=== PATIENT | male | born 1970 | race Caucasian/White ===

== ENCOUNTER 2018-08-12 15:05 | Inpatient (IN) | payer MEDICARE ==
[~2018-08-12] VITALS: Ht 194.3 cm; Wt 95.9 kg
[2018-08-12] MEDS ORDERED: BENZTROPINE ME0.5 MG PO (15:06)
[2018-08-12 15:16] VITALS: BP 154/99
[2018-08-12 16:00] VITALS: BP 149/91
[2018-08-12] MEDS ORDERED: Albuterol/Ipratropium 3ml neb HHN PRN (16:15)
[2018-08-12] MEDS ORDERED: Mylanta II UD 30ml ORAL PRN (16:15)
[2018-08-12] MEDS ORDERED: Nitroglycerin Subl 0.4mg tab SL PRN (16:15)
[2018-08-12] MEDS ORDERED: Tetanus/Diptheria/Pertussis Vaccine 0.5ml Syr IM ONE (16:15)
[2018-08-12] MEDS ORDERED: Ketorolac 30mg Inj IV PRN (16:15)
[2018-08-12] MEDS ORDERED: Miralax 17gm pkt ORAL PRN (16:15)
[2018-08-12 16:16] LABS: BASOPHILS % (AUTO) 1.1 % (0.0-2.0); EOSINOPHILS % (AUTO) 1.3 % (0.0-3.0); HEMATOCRIT 46.4 % (42.0-52.0); HEMOGLOBIN 15.9 G/DL (14.2-18.0); MEAN CORPUSCULAR VOLUME 83 FL (80-99); NEUTROPHILS % (AUTO) 63.5 % (45.0-75.0); PLATELET COUNT 197 K/UL (150-450); RED BLOOD COUNT 5.59 M/UL (4.70-6.10); RED CELL DISTRIBUTION WIDTH 12.5 % (11.6-14.8)
[2018-08-12 16:18] LABS: ANION GAP 12 mmol/L (5-15); BLOOD UREA NITROGEN 19 mg/dL (7-18); CALCIUM 9.2 MG/DL (8.5-10.1); CARBON DIOXIDE 25 MMOL/L (21-32); CHLORIDE 99 MMOL/L (98-107); CREATININE 1.3 MG/DL (0.55-1.30); POTASSIUM 4.3 MMOL/L (3.5-5.1); SODIUM 136 MMOL/L (136-145)
[2018-08-12 16:22] LABS: ALANINE AMINOTRANSFERASE 29 U/L (12-78); ALBUMIN 4.2 G/DL (3.4-5.0); ALBUMIN/GLOBULIN RATIO 1.1 (1.0-2.7); ALKALINE PHOSPHATASE 114 U/L (46-116); ASPARTATE AMINO TRANSFERASE 20 U/L (15-37); BILIRUBIN,TOTAL 0.4 MG/DL (0.2-1.0)
[2018-08-12 17:00] VITALS: BP 135/78
--- NOTE | 2018-08-12 17:04 | Diagnostic Imaging Report ---
EXAM: XR Right Foot Complete, 3 or More Views CLINICAL HISTORY: PAIN TECHNIQUE: Frontal, lateral and oblique views of the right foot. COMPARISON: No relevant prior studies available. FINDINGS: Bones/joints: Second digit amputation at the proximal aspect of the proximal phalanx. Slight subluxation of the distal first phalanx with respect to the proximal phalanx. No fracture. Limited evaluation distal aspect of the proximal third and fourth phalanx, query lucency that is likely artifact/projectional, correlate with point tenderness for possible fracture. Small marginal erosion distal first metatarsal. Soft tissues: No radiopaque foreign body. IMPRESSION: 1. Soft tissue swelling first digit. 2. Second digit amputation at the proximal aspect of the proximal phalanx. 3. Slight subluxation of the distal first phalanx with respect to the proximal phalanx. No fracture. 4. Limited evaluation distal aspect of the proximal third and fourth phalanx, query lucency that is likely artifact/projectional, correlate with point tenderness for possible fracture.
[2018-08-12 17:25] LABS: APPEARANCE,URINE CLEAR; BILIRUBIN, URINE NEGATIVE (NEGATIVE); COLOR,URINE PALE YELLOW; GLUCOSE, URINE (UA) 4+ (NEGATIVE); KETONES,URINE NEGATIVE (NEGATIVE); LEUKOCYTE ESTERASE ,URINE NEGATIVE (NEGATIVE); NITRITE,URINE NEGATIVE (NEGATIVE); PH,URINE 7 (4.5-8.0); PROTEIN,URINE 2+ (NEGATIVE); UROBILINOGEN,URINE NORMAL MG/DL (0.0-1.0)
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
[2018-08-12] MEDS: NovoLOG Insulin Flexpen SUBQ SCH ×2 (18:40→21:00)
[2018-08-12 20:00] VITALS: BP 116/71
[2018-08-12] MEDS ORDERED: NovoLOG Insulin Flexpen SUBQ SCH (21:00)
[2018-08-12] MEDS: Heparin 5000 units/ml inj SUBQ SCH (21:00)
[2018-08-12] MEDS: Morphine Sulfate 2mg/ml Inj IVP PRN (21:37)
[2018-08-12] MEDS: Levemir Flexpen SUBQ SCH (21:44)
[2018-08-13] MEDS: Morphine Sulfate 2mg/ml Inj IVP PRN ×6 (02:15→22:40)
[2018-08-13 04:00] VITALS: BP 125/80
[2018-08-13] MEDS: NovoLOG Insulin Flexpen SUBQ SCH ×7 (06:15→21:51)
[2018-08-13 06:29] LABS: BASOPHILS % (AUTO) 0.9 % (0.0-2.0); EOSINOPHILS % (AUTO) 2.7 % (0.0-3.0); HEMATOCRIT 44.1 % (42.0-52.0); HEMOGLOBIN 14.6 G/DL (14.2-18.0); LYMPHOCYTES % (AUTO) 28.1 % (20.0-45.0); MEAN CORPUSCULAR VOLUME 83 FL (80-99); MONOCYTES % (AUTO) 8.5 % (1.0-10.0); NEUTROPHILS % (AUTO) 59.8 % (45.0-75.0); PLATELET COUNT 179 K/UL (150-450); RED BLOOD COUNT 5.31 M/UL (4.70-6.10); RED CELL DISTRIBUTION WIDTH 13.1 % (11.6-14.8); WHITE BLOOD COUNT 7.5 K/UL (4.8-10.8)
[2018-08-13 06:55] LABS: ALANINE AMINOTRANSFERASE 24 U/L (12-78); ALBUMIN 3.6 G/DL (3.4-5.0); ALBUMIN/GLOBULIN RATIO 1.1 (1.0-2.7); ALKALINE PHOSPHATASE 99 U/L (46-116); ANION GAP 7 mmol/L (5-15); ASPARTATE AMINO TRANSFERASE 19 U/L (15-37); BILIRUBIN,TOTAL 0.5 MG/DL (0.2-1.0); BLOOD UREA NITROGEN 17 mg/dL (7-18); CALCIUM 8.8 MG/DL (8.5-10.1); CARBON DIOXIDE 26 MMOL/L (21-32); CHLORIDE 106 MMOL/L (98-107); CHOLESTEROL 185 MG/DL (< 200); CREATININE 0.9 MG/DL (0.55-1.30); HDL CHOLESTEROL 54 MG/DL (40-60); POTASSIUM 4.2 MMOL/L (3.5-5.1); SODIUM 139 MMOL/L (136-145); TRIGLYCERIDES 67 MG/DL (30-150)
[2018-08-13 08:00] VITALS: BP 128/78
[2018-08-13] MEDS: Heparin 5000 units/ml inj SUBQ SCH ×2 (08:20→21:49)
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
--- NOTE | 2018-08-13 10:30 | History and Physical Report ---
DATE OF ADMISSION: 08/12/2018 TIME SEEN: At 7 a.m. CONSULTANTS: 1. Jami Willett M.D. 2. Albertina Rice M.D. 3. Ramez Crawford M.D. 4. Farhat Noel D.P.M. 5. Elle Moore M.D. CHIEF COMPLAINT: Diabetes, hyperglycemia, encephalopathy, foot pain and wound, confusion, . BRIEF HISTORY: This is a 48-year-old male from [facility], who presented with diabetes, hyperglycemia greater than 500. He was confused and slightly agitated, sent to [facility], diagnosed with the above, and admitted to medical floor for further treatment. Currently, calmer in bed, complains of slight foot pain, no complaint otherwise. REVIEW OF SYSTEMS: No chest pain. No shortness of breath. No nausea, vomiting, or diarrhea. PAST MEDICAL HISTORY: Encephalopathy, diabetes, hyperglycemia, COPD, behavioral disorder. PAST SURGICAL HISTORY: Left foot. MEDICATIONS: Include insulin, heparin, IV fluid, albuterol, morphine, Zofran, temazepam, , nitroglycerin, clonidine. ALLERGIES: Penicillin and ibuprofen. SOCIAL HISTORY: Positive smoke. Positive alcohol. No intravenous drug abuse. FAMILY HISTORY: Noncontributory. PHYSICAL EXAMINATION: GENERAL: Calm in bed, oriented x2, in no acute distress. VITAL SIGNS: Temperature is 97 degrees, pulse 73, respiratory rate 17, blood pressure 125/80. CARDIOVASCULAR: No murmur. LUNGS: Distant and clear. ABDOMEN: Bowel sounds positive. Nontender, nondistended. EXTREMITIES: No cyanosis or edema. Left midfoot surgery noted as well as right toe slight abrasions. NEUROLOGIC: The patient moves all extremities, slightly weak. LABORATORY AND DIAGNOSTIC DATA: Labs at this time show CBC is normal. BMP shows glucose initially was 385 and now it is 168, otherwise is normal. Urinalysis is 4+ glucose, 2+ protein, otherwise normal. Acetone negative. ASSESSMENT: 1. Diabetes. 2. Hyperglycemia. 3. Encephalopathy. 4. COPD. 5. Foot pain and wound. PLAN: 1. Continue previous medications. 2. OT, PT, dietary evaluation. 3. CBC and BMP in the morning. 4. Wound care. 5. Antibiotics p.r.n. 6. Blood sugar control. 7. Dietary followup. 8. Resume home medications. 9. We will continue to follow this patient. Adriano Lei D.O. DR: Lindsay JOB#: [id number] CC:
--- NOTE | 2018-08-13 11:08 | Consultation ---
History of Present Illness General Date patient seen: Aug 13, 2018 Chief Complaint: Referring physician: Reason for Consultation: Present Illness Allergies: Coded Allergies: IBUPROFEN (Verified Allergy, Severe, Anaphylaxis, 08/12/18) PENICILLINS (Verified Allergy, Severe, Anaphylaxis, 08/12/18) Medication History Scheduled Benztropine Mesylate* (Cogentin*), 1 MG PO BID, (Reported) Patient History Healthcare decision maker N Resuscitation status Full Code Advanced Directive on File No Physical Exam Last 24 Hour Vital Signs Date Time Temp Pulse Resp B/P (MAP) Pulse Ox O2 Delivery O2 Flow Rate FiO2 08/13/18 09:00 Room Air 08/13/18 08:00 97.4 82 20 128/78 (95) 95 97.4 08/13/18 04:00 97.4 73 17 125/80 (95) 98 97.4 08/12/18 21:00 Room Air 08/12/18 20:58 Room Air 08/12/18 20:00 97.7 91 18 116/71 (86) 93 97.7 08/12/18 17:00 99 22 135/78 95 Room Air 08/12/18 16:00 95 33 149/91 93 Room Air 08/12/18 15:16 98.8 111 21 154/99 95 Room Air 98.8 08/12/18 14:58 98.2 87 16 164/82 100 Room Air 98.2 Intake and Output 08/12/18 08/13/18 19:00 07:00 Intake Total 1000 ml Balance 1000 ml Intake Oral 600 ml IV Total 400 ml # Voids 2 Laboratory Tests Test 08/12/18 15:40 08/13/18 05:30 White Blood Count 7.0 K/UL (4.8-10.8) 7.5 K/UL (4.8-10.8) Red Blood Count 5.59 M/UL (4.70-6.10) 5.31 M/UL (4.70-6.10) Hemoglobin 15.9 G/DL (14.2-18.0) 14.6 G/DL (14.2-18.0) Hematocrit 46.4 % (42.0-52.0) 44.1 % (42.0-52.0) Mean Corpuscular Volume 83 FL (80-99) 83 FL (80-99) Mean Corpuscular Hemoglobin 28.4 PG (27.0-31.0) 27.6 PG (27.0-31.0) Mean Corpuscular Hemoglobin Concent 34.2 G/DL (32.0-36.0) 33.2 G/DL (32.0-36.0) Red Cell Distribution Width 12.5 % (11.6-14.8) 13.1 % (11.6-14.8) Platelet Count 197 K/UL (150-450) 179 K/UL (150-450) Mean Platelet Volume 7.3 FL (6.5-10.1) 8.1 FL (6.5-10.1) Neutrophils (%) (Auto) 63.5 % (45.0-75.0) 59.8 % (45.0-75.0) Lymphocytes (%) (Auto) 27.0 % (20.0-45.0) 28.1 % (20.0-45.0) Monocytes (%) (Auto) 7.0 % (1.0-10.0) 8.5 % (1.0-10.0) Eosinophils (%) (Auto) 1.3 % (0.0-3.0) 2.7 % (0.0-3.0) Basophils (%) (Auto) 1.1 % (0.0-2.0) 0.9 % (0.0-2.0) Urine Color Pale yellow Urine Appearance Clear Urine pH 7 (4.5-8.0) Urine Specific [place] 1.005 (1.005-1.035) Urine Protein 2+ (NEGATIVE) H Urine Glucose (UA) 4+ (NEGATIVE) H Urine Ketones Negative (NEGATIVE) Urine Blood Negative (NEGATIVE) Urine Nitrite Negative (NEGATIVE) Urine Bilirubin Negative (NEGATIVE) Urine Urobilinogen Normal MG/DL (0.0-1.0) Urine Leukocyte Esterase Negative (NEGATIVE) Urine RBC 0-2 /HPF (0 - 0) H Urine WBC 0-2 /HPF (0 - 0) Urine Squamous Epithelial Cells None /LPF (NONE/OCC) Urine Bacteria Few /HPF (NONE) Sodium Level 136 MMOL/L (136-145) 139 MMOL/L (136-145) Potassium Level 4.3 MMOL/L (3.5-5.1) 4.2 MMOL/L (3.5-5.1) Chloride Level 99 MMOL/L (98-107) 106 MMOL/L (98-107) Carbon Dioxide Level 25 MMOL/L (21-32) 26 MMOL/L (21-32) Anion Gap 12 mmol/L (5-15) 7 mmol/L (5-15) Blood Urea Nitrogen 19 mg/dL (7-18) H 17 mg/dL (7-18) Creatinine 1.3 MG/DL (0.55-1.30) 0.9 MG/DL (0.55-1.30) Estimat Glomerular Filtration Rate 59.2 mL/min (>60) > 60 mL/min (>60) Glucose Level 385 MG/DL (74-106) H 168 MG/DL (74-106) #H Hemoglobin A1c 8.0 % (4.3-6.0) H 7.9 % (4.3-6.0) H Calcium Level 9.2 MG/DL (8.5-10.1) 8.8 MG/DL (8.5-10.1) Magnesium Level 1.8 MG/DL (1.8-2.4) Total Bilirubin 0.4 MG/DL (0.2-1.0) 0.5 MG/DL (0.2-1.0) Aspartate Amino Transf (AST/SGOT) 20 U/L (15-37) 19 U/L (15-37) Alanine Aminotransferase (ALT/SGPT) 29 U/L (12-78) 24 U/L (12-78) Alkaline Phosphatase 114 U/L (46-116) 99 U/L (46-116) Total Protein 8.1 G/DL (6.4-8.2) 7.0 G/DL (6.4-8.2) Albumin 4.2 G/DL (3.4-5.0) 3.6 G/DL (3.4-5.0) Globulin 3.9 g/dL 3.4 g/dL Albumin/Globulin Ratio 1.1 (1.0-2.7) 1.1 (1.0-2.7) Acetone Level Negative (NEGATIVE) Triglycerides Level 67 MG/DL (30-150) Cholesterol Level 185 MG/DL (< 200) LDL Cholesterol 118 mg/dL (<100) H HDL Cholesterol 54 MG/DL (40-60) Cholesterol/HDL Ratio 3.4 (3.3-4.4) Thyroid Stimulating Hormone (TSH) 1.601 uiU/mL (0.358-3.740) Height (Feet): 6 Height (Inches): 4.50 Weight (Pounds): 210 Medications Current Medications Medications (Trade) Dose Ordered Sig/Alex Route PRN Reason Start Time Stop Time Status Last Admin Dose Admin Acetaminophen (Tylenol) 650 mg Q4H PRN ORAL fever 08/12/18 16:15 09/11/18 16:14 08/12/18 19:41 Al Hydroxide/Mg Hydroxide (Mylanta II) 30 ml Q6H PRN ORAL dyspepsia 08/12/18 16:15 09/11/18 16:14 Albuterol/ Ipratropium (Albuterol/ Ipratropium) 3 ml Q4H PRN HHN Shortness of Breath 08/12/18 16:15 08/17/18 16:14 Atorvastatin Calcium (Lipitor) 10 mg BEDTIME ORAL 08/13/18 21:00 09/12/18 20:59 Clonidine HCl (Catapres Tab) 0.1 mg Q4H PRN ORAL sbp more than 160 08/12/18 16:15 09/11/18 16:14 Dextrose (Dextrose 50%) 25 ml Q30M PRN IV Hypoglycemia 08/12/18 19:00 09/11/18 18:59 Dextrose (Dextrose 50%) 50 ml Q30M PRN IV Hypoglycemia 08/12/18 19:00 09/11/18 18:59 Heparin Sodium (Porcine) (Heparin 5000 units/ml) 5,000 units EVERY 12 HOURS SUBQ 08/12/18 21:00 09/11/18 20:59 08/13/18 08:20 Insulin Aspart (NovoLOG) BEFORE MEALS AND HS SUBQ 08/12/18 18:22 09/11/18 18:21 08/13/18 06:17 Insulin Aspart (NovoLOG) 6 units NOVOTIAC SUBQ 08/13/18 06:30 09/12/18 06:29 08/13/18 06:15 Insulin Detemir (Levemir) 18 units BEDTIME SUBQ 08/12/18 21:00 11/19/18 20:59 08/12/18 21:44 Morphine Sulfate (Morphine Sulfate) 2 mg Q4H PRN IVP severe pain 7-10 08/12/18 16:15 08/19/18 16:14 08/13/18 10:28 Nitroglycerin (Ntg) 0.4 mg Q5M X 3 DOSES PRN SL Prn Chest Pain 08/12/18 16:15 09/11/18 16:14 Ondansetron HCl (Zofran) 4 mg Q6H PRN IVP Nausea & Vomiting 08/12/18 16:15 09/11/18 16:14 Polyethylene Glycol (Miralax) 17 gm HSPRN PRN ORAL Constipation 08/12/18 16:15 09/11/18 16:14 Sodium Chloride 1,000 ml @ 50 mls/hr Q20H IVLG 08/13/18 09:00 09/11/18 08:59 08/13/18 09:08 Temazepam (Restoril) 15 mg HSPRN PRN ORAL Insomnia 08/12/18 16:15 08/19/18 16:14 Assessment/Plan Assessment/Plan (1) Peripheral Neuropathy (2) Peripheral Artery disease (3) 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 Tiago Mary Aug 13, 2018 11:08
[2018-08-13 12:00] VITALS: BP 140/92
[2018-08-13 16:00] VITALS: BP 155/98
--- NOTE | 2018-08-13 19:45 | Consultation ---
DATE OF CONSULTATION: 08/13/2018 PAIN MANAGEMENT CONSULTATION CONSULTING PHYSICIAN: Elle Moore M.D. REFERRING PHYSICIAN: Adriano Lei D.O. PHYSICIAN SUPERINTENDENT OPERATIONS DIVISION: [facility]. CHIEF COMPLAINT: Bilateral lower extremity pain. HISTORY OF PRESENT ILLNESS: This is a 48-year-old male, who is being seen on Med[facility]Surg floor of [facility] for initial comprehensive pain management consultation. The patient reports that he has been having bilateral lower extremity pain in the left foot due to left partial foot amputation, right foot due to right second toe amputation as well as big toe sprain with swelling noted in his foot, and describing the pain as aching throbbing pain, rating it an 8/10. It is worse, increased with movement. Nothing has been helping to relieve the pain. He has been treated with morphine 2 mg IV every 4 hours as needed for pain. We were consulted so that the patient would have adequate pain control while here in the hospital. X-ray of the right foot area revealed evidence of possible fracture, waiting for Podiatry consultation and will be seen by a psychiatrist as well as an gamma ray operator due to diabetes and psychiatric disorders. PAST MEDICAL HISTORY: Diabetes mellitus, COPD, hypertension, neuropathy, psychiatric disorder. PAST SURGICAL HISTORY: Left foot partial amputation and right second toe amputation. SOCIAL HISTORY: He is a smoker and drinks alcohol. Denies IV drug abuse. ALLERGIES: Penicillin and ibuprofen. MEDICATIONS: Cogentin. REVIEW OF SYSTEMS: Denies rash, fever, chills, sweating, dizziness, drowsiness, blurred vision, or change in weight. No shortness of breath or chest pain. No nausea, vomiting, diarrhea, or blood in the stool or urine. No bowel or bladder incontinence. No dysuria. He complains of bilateral lower extremity pain. PHYSICAL EXAMINATION: GENERAL: Alert, awake, oriented. VITAL SIGNS: Blood pressure 128/78, heart rate is 85, oxygen saturation 95%, respirations 20, and temperature 98 degrees Fahrenheit. HEENT: PERRLA. NECK: Range of motion is full in all directions. No tenderness in paracervical muscles. No adenopathy. LUNGS: Decreased breath sounds bilaterally. HEART: S1 and S2. Regular. ABDOMEN: Benign. BACK: Range of motion is full on flexion and extension. EXTREMITIES: Upper extremity range of motion is full in all directions. No cyanosis. No clubbing. No edema. Sensory is intact. Reflexes are not obtainable. No adenopathy. Lower extremity range of motion is decreased due to the patient's pain and condition. Left foot partial amputation noted. Right second toe amputation noted. There is clubbing with cyanosis and tenderness noted at the right big toe at this time. Sensory is reduced. Reflexes are not obtainable. No adenopathy. ASSESSMENT AND PLAN: This is a 48-year-old male with peripheral neuropathy, peripheral artery disease, history of left foot partial amputation and right second toe amputation, right foot sprain. The patient will be continued on morphine 2 mg IV every 4 hours as needed for severe pain. Waiting for Podiatry, Endocrinology, and Psychiatric consultations to see the patient as per microcomputer technician. The patient was discussed with Dr. Moore and Dr. Moore concurred. We will follow the patient. Thank you very much for the courtesy of this consultation. Elle Moore M.D. [facility] DR: Yamilka JOB#: [id number] CC: MAC
[2018-08-13 20:00] VITALS: BP 128/77
[2018-08-13] MEDS: Levemir Flexpen SUBQ SCH (21:50)
[2018-08-14] VITALS (7 sets, daily range): BP systolic 120–166; BP diastolic 73–103
[2018-08-14] MEDS: Morphine Sulfate 2mg/ml Inj IVP PRN ×4 (04:18→21:35)
[2018-08-14] MEDS: NovoLOG Insulin Flexpen SUBQ SCH ×7 (06:18→21:50)
[2018-08-14 07:42] LABS: BASOPHILS % (AUTO) 1.1 % (0.0-2.0); EOSINOPHILS % (AUTO) 2.7 % (0.0-3.0); HEMOGLOBIN 15.3 G/DL (14.2-18.0); LYMPHOCYTES % (AUTO) 32.3 % (20.0-45.0); MEAN CORPUSCULAR VOLUME 83 FL (80-99); MONOCYTES % (AUTO) 7.4 % (1.0-10.0); NEUTROPHILS % (AUTO) 56.5 % (45.0-75.0); PLATELET COUNT 185 K/UL (150-450); RED BLOOD COUNT 5.68 M/UL (4.70-6.10); RED CELL DISTRIBUTION WIDTH 12.7 % (11.6-14.8); WHITE BLOOD COUNT 5.5 K/UL (4.8-10.8)
[2018-08-14 07:58] LABS: ANION GAP 7 mmol/L (5-15); BLOOD UREA NITROGEN 12 mg/dL (7-18); CALCIUM 9.5 MG/DL (8.5-10.1); CARBON DIOXIDE 27 MMOL/L (21-32); CHLORIDE 105 MMOL/L (98-107); CREATININE 0.8 MG/DL (0.55-1.30); POTASSIUM 4.3 MMOL/L (3.5-5.1); SODIUM 139 MMOL/L (136-145)
[2018-08-14] MEDS: Heparin 5000 units/ml inj SUBQ SCH ×2 (08:24→21:36)
--- NOTE | 2018-08-14 08:51 | General Progress Note ---
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 Moore and he concurred. Subjective Date patient seen: Aug 14, 2018 Time patient seen: 07:15 - am Constitutional: Reports: no symptoms HEENT: Reports: no symptoms Cardiovascular: Reports: no symptoms Respiratory: Reports: no symptoms Gastrointestinal/Abdominal: Reports: no symptoms Genitourinary: Reports: no symptoms Neurologic/Psychiatric: Reports: numbness, weakness Endocrine: Reports: no symptoms Hematologic/Lymphatic: Reports: no symptoms Allergies: Coded Allergies: IBUPROFEN (Verified Allergy, Severe, Anaphylaxis, 08/12/18) PENICILLINS (Verified Allergy, Severe, Anaphylaxis, 08/12/18) Subjective Patient is in bed and showing no signs of pain or distress. Pain is tolerated on the Morphine. Waiting for podiatry consult. Objective Last 24 Hour Vital Signs Date Time Temp Pulse Resp B/P (MAP) Pulse Ox O2 Delivery O2 Flow Rate FiO2 08/14/18 08:00 97.5 78 19 129/81 (97) 94 97.5 08/14/18 07:22 67 15 Room Air 21 08/14/18 04:00 97.2 68 18 139/94 (109) 96 97.2 08/14/18 00:00 97.7 63 20 128/73 (91) 96 97.7 08/13/18 21:00 Room Air 08/13/18 20:00 97.7 68 18 128/77 (94) 97 97.7 08/13/18 18:55 87 18 Room Air 21 08/13/18 16:00 97.5 69 18 155/98 (117) 97 97.5 08/13/18 12:00 97.7 81 19 140/92 (108) 95 97.7 08/13/18 09:00 Room Air Intake and Output 08/13/18 08/14/18 19:00 07:00 Intake Total 1450 ml 1000 ml Output Total 1300 ml 1400 ml Balance 150 ml -400 ml Intake Oral 950 ml 500 ml IV Total 500 ml 500 ml Output Urine Total 1300 ml 1400 ml Laboratory Tests 08/14/18 07:10: White Blood Count 5.5, Red Blood Count 5.68, Hemoglobin 15.3, Hematocrit 47.0, Mean Corpuscular Volume 83, Mean Corpuscular Hemoglobin 27.0, Mean Corpuscular Hemoglobin Concent 32.6, Red Cell Distribution Width 12.7, Platelet Count 185, Mean Platelet Volume 7.3, Neutrophils (%) (Auto) 56.5, Lymphocytes (%) (Auto) 32.3, Monocytes (%) (Auto) 7.4, Eosinophils (%) (Auto) 2.7, Basophils (%) (Auto ) 1.1, Sodium Level 139, Potassium Level 4.3, Chloride Level 105, Carbon Dioxide Level 27, Anion Gap 7, Blood Urea Nitrogen 12, Creatinine 0.8, Estimat Glomerular Filtration Rate > 60, Glucose Level 125H, Calcium Level 9.5 Height (Feet): 6 Height (Inches): 4.50 Weight (Pounds): 210 General Appearance: no apparent distress, alert EENT: PERRL/EOMI, normal ENT inspection Neck: non-tender, normal alignment Cardiovascular: normal rate, regular rhythm Respiratory/Chest: lungs clear, normal breath sounds Abdomen: non tender, soft Extremities: swelling Edema: trace edema Neurologic: alert, oriented x 3 Tiago Mary Aug 14, 2018 08:51
--- NOTE | 2018-08-14 12:44 | Pulmonology Progress Note ---
Assessment/Plan Problems: (1) Uncontrolled diabetes mellitus (2) HTN (hypertension) (3) Hyperglycemia (4) Psychiatric disorder Assessment/Plan BS better dc if fluids monitor BP on clonidine prn Subjective ROS Limited/Unobtainable: No Constitutional: Reports: no symptoms HEENT: Repors: no symptoms Respiratory: Reports: no symptoms Allergies: Coded Allergies: IBUPROFEN (Verified Allergy, Severe, Anaphylaxis, 08/12/18) PENICILLINS (Verified Allergy, Severe, Anaphylaxis, 08/12/18) Objective Last 24 Hour Vital Signs Date Time Temp Pulse Resp B/P (MAP) Pulse Ox O2 Delivery O2 Flow Rate FiO2 08/14/18 12:06 166/103 08/14/18 12:00 97.6 70 19 166/103 (124) 97 97.6 08/14/18 09:00 Room Air 08/14/18 08:00 97.5 78 19 129/81 (97) 94 97.5 08/14/18 07:22 67 15 Room Air 21 08/14/18 04:00 97.2 68 18 139/94 (109) 96 97.2 08/14/18 00:00 97.7 63 20 128/73 (91) 96 97.7 08/13/18 21:00 Room Air 08/13/18 20:00 97.7 68 18 128/77 (94) 97 97.7 08/13/18 18:55 87 18 Room Air 21 08/13/18 16:00 97.5 69 18 155/98 (117) 97 97.5 Intake and Output 08/13/18 08/14/18 19:00 07:00 Intake Total 1450 ml 1000 ml Output Total 1300 ml 1400 ml Balance 150 ml -400 ml Intake Oral 950 ml 500 ml IV Total 500 ml 500 ml Output Urine Total 1300 ml 1400 ml General Appearance: WD/WN, no acute distress HEENT: normocephalic Respiratory/Chest: chest wall non-tender, lungs clear Cardiovascular: normal peripheral pulses, normal rate Abdomen: normal bowel sounds, soft, non tender, no scars Skin: no rash Neurologic/Psychiatric: hvac designer II-XII grossly normal Laboratory Tests 08/14/18 07:10: White Blood Count 5.5, Red Blood Count 5.68, Hemoglobin 15.3, Hematocrit 47.0, Mean Corpuscular Volume 83, Mean Corpuscular Hemoglobin 27.0, Mean Corpuscular Hemoglobin Concent 32.6, Red Cell Distribution Width 12.7, Platelet Count 185, Mean Platelet Volume 7.3, Neutrophils (%) (Auto) 56.5, Lymphocytes (%) (Auto) 32.3, Monocytes (%) (Auto) 7.4, Eosinophils (%) (Auto) 2.7, Basophils (%) (Auto ) 1.1, Sodium Level 139, Potassium Level 4.3, Chloride Level 105, Carbon Dioxide Level 27, Anion Gap 7, Blood Urea Nitrogen 12, Creatinine 0.8, Estimat Glomerular Filtration Rate > 60, Glucose Level 125H, Calcium Level 9.5 Current Medications Medications (Trade) Dose Ordered Sig/Alex Route PRN Reason Start Time Stop Time Status Last Admin Dose Admin Acetaminophen (Tylenol) 650 mg Q4H PRN ORAL fever 08/12/18 16:15 09/11/18 16:14 08/12/18 19:41 Al Hydroxide/Mg Hydroxide (Mylanta II) 30 ml Q6H PRN ORAL dyspepsia 08/12/18 16:15 09/11/18 16:14 Albuterol/ Ipratropium (Albuterol/ Ipratropium) 3 ml Q4H PRN HHN Shortness of Breath 08/12/18 16:15 08/17/18 16:14 Atorvastatin Calcium (Lipitor) 10 mg BEDTIME ORAL 08/13/18 21:00 09/12/18 20:59 08/13/18 21:46 Clonidine HCl (Catapres Tab) 0.1 mg Q4H PRN ORAL sbp more than 160 08/12/18 16:15 09/11/18 16:14 08/14/18 12:06 Dextrose (Dextrose 50%) 25 ml Q30M PRN IV Hypoglycemia 08/12/18 19:00 09/11/18 18:59 Dextrose (Dextrose 50%) 50 ml Q30M PRN IV Hypoglycemia 08/12/18 19:00 09/11/18 18:59 Heparin Sodium (Porcine) (Heparin 5000 units/ml) 5,000 units EVERY 12 HOURS SUBQ 08/12/18 21:00 09/11/18 20:59 08/14/18 08:24 Insulin Aspart (NovoLOG) BEFORE MEALS AND HS SUBQ 08/12/18 18:22 09/11/18 18:21 08/14/18 12:09 Insulin Aspart (NovoLOG) 6 units NOVOTIAC SUBQ 08/13/18 06:30 09/12/18 06:29 08/14/18 12:10 Insulin Detemir (Levemir) 18 units BEDTIME SUBQ 08/12/18 21:00 09/11/18 20:59 08/13/18 21:50 Lorazepam (Ativan) 1 mg Q6H PRN ORAL For Anxiety 08/14/18 05:30 08/21/18 05:29 Morphine Sulfate (Morphine Sulfate) 2 mg Q4H PRN IVP severe pain 7-10 08/12/18 16:15 08/19/18 16:14 08/14/18 08:16 Nitroglycerin (Ntg) 0.4 mg Q5M X 3 DOSES PRN SL Prn Chest Pain 08/12/18 16:15 09/11/18 16:14 Ondansetron HCl (Zofran) 4 mg Q6H PRN IVP Nausea & Vomiting 08/12/18 16:15 09/11/18 16:14 Polyethylene Glycol (Miralax) 17 gm HSPRN PRN ORAL Constipation 08/12/18 16:15 09/11/18 16:14 Risperidone (RisperDAL) 1 mg QHS ORAL 08/14/18 21:00 09/13/18 20:59 Sodium Chloride 1,000 ml @ 50 mls/hr Q20H IVLG 08/13/18 09:00 09/11/18 08:59 08/13/18 09:08 Temazepam (Restoril) 15 mg HSPRN PRN ORAL Insomnia 08/12/18 16:15 08/19/18 16:14 Jami Willett MD Aug 14, 2018 12:44
--- NOTE | 2018-08-14 12:55 | General Progress Note ---
Assessment/Plan Problem List: (1) Wound of foot ICD Codes: S91.309A - Unspecified open wound, unspecified foot, initial encounter SNOMED: 825301210, 525836034 (2) Behavioral disorder SNOMED: 383212340 (3) Hyperglycemia ICD Codes: R73.9 - Hyperglycemia, unspecified SNOMED: 49032494 (4) HTN (hypertension) ICD Codes: I10 - Essential (primary) hypertension SNOMED: 64231026 (5) Uncontrolled diabetes mellitus ICD Codes: E11.65 - Type 2 diabetes mellitus with hyperglycemia SNOMED: 38674652, 365783574 (6) Psychiatric disorder ICD Codes: F99 - Mental disorder, not otherwise specified SNOMED: 10085382, 712480143 Status: unchanged Assessment/Plan wound care pain control ot pt diet abx cbc bmp am psyc transfer if clear Subjective Constitutional: Reports: weakness Allergies: Coded Allergies: IBUPROFEN (Verified Allergy, Severe, Anaphylaxis, 08/12/18) PENICILLINS (Verified Allergy, Severe, Anaphylaxis, 08/12/18) All Systems: reviewed and negative except above Subjective calm in bed sl foot pain Objective Last 24 Hour Vital Signs Date Time Temp Pulse Resp B/P (MAP) Pulse Ox O2 Delivery O2 Flow Rate FiO2 08/14/18 12:06 166/103 08/14/18 12:00 97.6 70 19 166/103 (124) 97 97.6 08/14/18 09:00 Room Air 08/14/18 08:00 97.5 78 19 129/81 (97) 94 97.5 08/14/18 07:22 67 15 Room Air 08/14/18 04:00 97.2 68 18 139/94 (109) 96 97.2 08/14/18 00:00 97.7 63 20 128/73 (91) 96 97.7 08/13/18 21:00 Room Air 08/13/18 20:00 97.7 68 18 128/77 (94) 97 97.7 08/13/18 18:55 87 18 Room Air 21 08/13/18 16:00 97.5 69 18 155/98 (117) 97 97.5 Intake and Output 08/13/18 08/14/18 19:00 07:00 Intake Total 1450 ml 1000 ml Output Total 1300 ml 1400 ml Balance 150 ml -400 ml Intake Oral 950 ml 500 ml IV Total 500 ml 500 ml Output Urine Total 1300 ml 1400 ml Laboratory Tests 08/14/18 07:10: White Blood Count 5.5, Red Blood Count 5.68, Hemoglobin 15.3, Hematocrit 47.0, Mean Corpuscular Volume 83, Mean Corpuscular Hemoglobin 27.0, Mean Corpuscular Hemoglobin Concent 32.6, Red Cell Distribution Width 12.7, Platelet Count 185, Mean Platelet Volume 7.3, Neutrophils (%) (Auto) 56.5, Lymphocytes (%) (Auto) 32.3, Monocytes (%) (Auto) 7.4, Eosinophils (%) (Auto) 2.7, Basophils (%) (Auto ) 1.1, Sodium Level 139, Potassium Level 4.3, Chloride Level 105, Carbon Dioxide Level 27, Anion Gap 7, Blood Urea Nitrogen 12, Creatinine 0.8, Estimat Glomerular Filtration Rate > 60, Glucose Level 125H, Calcium Level 9.5 Height (Feet): 6 Height (Inches): 4.50 Weight (Pounds): 210 General Appearance: lethargic EENT: normal ENT inspection Neck: normal alignment Cardiovascular: normal peripheral pulses, normal rate, regular rhythm Respiratory/Chest: chest wall non-tender, lungs clear, normal breath sounds Abdomen: normal bowel sounds, non tender, soft Extremities: normal inspection Edema: no edema noted Arm (L), no edema noted Arm (R), no edema noted Leg (L), no edema noted Leg (R), no edema noted Pedal (L), no edema noted Pedal (R), no edema noted Generalized Neurologic: responsive, motor weakness Skin: normal pigmentation, warm/dry Adriano Lei DO Aug 14, 2018 12:55
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
--- NOTE | 2018-08-14 16:25 | Consultation ---
Consult Note Assessment/Plan A/ 1) Hematoma/blister right hallux 2) DM with neuropathy 3) h/o healed amputations right 2nd toe and left TMA P/ 1) Patient consented. Time out taken, Area prepped. I&D of right hallux performed. Cultures taken. Wound dressed. Patient tolerated well 2) Orders: Consent, wound cultures, wound care, dispense post op shoe 3) Patient can ambulate with post op shoe without restrictions 4) Will follow Thank you Farhat Mirza DPM Aug 14, 2018 16:25
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
[2018-08-14] MEDS: Levemir Flexpen SUBQ SCH (21:50)
[2018-08-15] VITALS: BP 132/74
[2018-08-15] MEDS: Morphine Sulfate 2mg/ml Inj IVP PRN ×5 (03:25→22:18)
[2018-08-15 04:00] VITALS: BP 127/74
[2018-08-15] MEDS: NovoLOG Insulin Flexpen SUBQ SCH ×7 (05:41→20:17)
[2018-08-15 07:21] LABS: BASOPHILS % (AUTO) 1.5 % (0.0-2.0); EOSINOPHILS % (AUTO) 2.9 % (0.0-3.0); HEMATOCRIT 46.1 % (42.0-52.0); HEMOGLOBIN 15.3 G/DL (14.2-18.0); LYMPHOCYTES % (AUTO) 33.5 % (20.0-45.0); MEAN CORPUSCULAR VOLUME 83 FL (80-99); MONOCYTES % (AUTO) 8.4 % (1.0-10.0); NEUTROPHILS % (AUTO) 53.7 % (45.0-75.0); PLATELET COUNT 178 K/UL (150-450); RED BLOOD COUNT 5.57 M/UL (4.70-6.10); RED CELL DISTRIBUTION WIDTH 12.4 % (11.6-14.8); WHITE BLOOD COUNT 5.2 K/UL (4.8-10.8)
[2018-08-15 07:43] LABS: ALANINE AMINOTRANSFERASE 23 U/L (12-78); ALBUMIN 3.7 G/DL (3.4-5.0); ALBUMIN/GLOBULIN RATIO 0.9 (1.0-2.7); ALKALINE PHOSPHATASE 99 U/L (46-116); ANION GAP 7 mmol/L (5-15); ASPARTATE AMINO TRANSFERASE 13 U/L (15-37); BILIRUBIN,TOTAL 0.5 MG/DL (0.2-1.0); BLOOD UREA NITROGEN 12 mg/dL (7-18); CALCIUM 9.6 MG/DL (8.5-10.1); CARBON DIOXIDE 27 MMOL/L (21-32); CHLORIDE 103 MMOL/L (98-107); CREATININE 0.7 MG/DL (0.55-1.30); PHOSPHORUS 3.5 MG/DL (2.5-4.9); POTASSIUM 4.3 MMOL/L (3.5-5.1); SODIUM 137 MMOL/L (136-145)
[2018-08-15 08:00] VITALS: BP 111/71
[2018-08-15] MEDS: Heparin 5000 units/ml inj SUBQ SCH ×2 (08:21→20:19)
--- NOTE | 2018-08-15 08:45 | General Progress Note ---
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 Moore and he concurred. Subjective Date patient seen: Aug 15, 2018 Time patient seen: 07:15 - am Allergies: Coded Allergies: IBUPROFEN (Verified Allergy, Severe, Anaphylaxis, 08/12/18) PENICILLINS (Verified Allergy, Severe, Anaphylaxis, 08/12/18) Subjective Constitutional: Reports: no symptoms HEENT: Reports: no symptoms Cardiovascular: Reports: no symptoms Respiratory: Reports: no symptoms Gastrointestinal/Abdominal: Reports: no symptoms Genitourinary: Reports: no symptoms Neurologic/Psychiatric: Reports: numbness, weakness Endocrine: Reports: no symptoms Hematologic/Lymphatic: Reports: no symptoms Subjective Patient is in bed s/p I+D of right big toe hematoma. He reports pain has been reduced and tolerated on the Morphine, No new complaints Objective Last 24 Hour Vital Signs Date Time Temp Pulse Resp B/P (MAP) Pulse Ox O2 Delivery O2 Flow Rate FiO2 08/15/18 08:16 98.1 08/15/18 08:00 98.1 83 20 111/71 (84) 100 98.1 08/15/18 04:00 97.2 57 18 127/74 (91) 98 97.2 08/15/18 00:00 97.1 58 18 132/74 (93) 96 97.1 08/14/18 21:00 Room Air 08/14/18 20:00 97.4 71 18 127/73 (91) 97 97.4 08/14/18 19:09 63 16 Room Air 21 08/14/18 16:00 97.8 68 18 120/85 (97) 95 97.8 08/14/18 12:30 76 121/81 (94) 08/14/18 12:06 166/103 08/14/18 12:00 97.6 70 19 166/103 (124) 97 97.6 08/14/18 09:00 Room Air Intake and Output 08/14/18 08/15/18 19:00 07:00 Intake Total 450 ml 800 ml Output Total 1200 ml 1500 ml Balance -750 ml -700 ml Intake Oral 450 ml 800 ml Output Urine Total 1200 ml 1500 ml # Voids 4 3 Laboratory Tests 08/15/18 06:45: White Blood Count 5.2, Red Blood Count 5.57, Hemoglobin 15.3, Hematocrit 46.1, Mean Corpuscular Volume 83, Mean Corpuscular Hemoglobin 27.5, Mean Corpuscular Hemoglobin Concent 33.2, Red Cell Distribution Width 12.4, Platelet Count 178, Mean Platelet Volume 8.2, Neutrophils (%) (Auto) 53.7, Lymphocytes (%) (Auto) 33.5, Monocytes (%) (Auto) 8.4, Eosinophils (%) (Auto) 2.9, Basophils (%) (Auto ) 1.5, Sodium Level 137, Potassium Level 4.3, Chloride Level 103, Carbon Dioxide Level 27, Anion Gap 7, Blood Urea Nitrogen 12, Creatinine 0.7, Estimat Glomerular Filtration Rate > 60, Glucose Level 138H, Calcium Level 9.6, Phosphorus Level 3.5, Magnesium Level 1.9, Total Bilirubin 0.5, Aspartate Amino Transf (AST/SGOT) 13L, Alanine Aminotransferase (ALT/SGPT) 23, Alkaline Phosphatase 99, Total Protein 7.6, Albumin 3.7, Globulin 3.9, Albumin/Globulin Ratio 0.9L Height (Feet): 6 Height (Inches): 4.50 Weight (Pounds): 210 Objective General Appearance: no apparent distress, alert EENT: PERRL/EOMI, normal ENT inspection Neck: non-tender, normal alignment Cardiovascular: normal rate, regular rhythm Respiratory/Chest: lungs clear, normal breath sounds Abdomen: non tender, soft Extremities: bandages applied to right foot Edema: trace edema Neurologic: alert, oriented x 3 Tiago Mary Aug 15, 2018 08:45
[2018-08-15] MEDS: LORazepam 1mg tab ORAL PRN ×2 (09:40→20:15)
[2018-08-15 11:50] VITALS: BP 129/85
--- NOTE | 2018-08-15 13:30 | General Progress Note ---
Assessment/Plan Problem List: (1) Wound of foot ICD Codes: S91.309A - Unspecified open wound, unspecified foot, initial encounter SNOMED: 124693984, 363244779 (2) Behavioral disorder SNOMED: 181399232 (3) Hyperglycemia ICD Codes: R73.9 - Hyperglycemia, unspecified SNOMED: 57109216 (4) HTN (hypertension) ICD Codes: I10 - Essential (primary) hypertension SNOMED: 98278193 (5) Uncontrolled diabetes mellitus ICD Codes: E11.65 - Type 2 diabetes mellitus with hyperglycemia SNOMED: 37909395, 080800714 (6) Psychiatric disorder ICD Codes: F99 - Mental disorder, not otherwise specified SNOMED: 12109859, 492291131 Status: stable, progressing Assessment/Plan wound care pain control ot pt diet abx psyc transfer if clear Subjective Constitutional: Reports: weakness Allergies: Coded Allergies: IBUPROFEN (Verified Allergy, Severe, Anaphylaxis, 08/12/18) PENICILLINS (Verified Allergy, Severe, Anaphylaxis, 08/12/18) All Systems: reviewed and negative except above Subjective calm in bed sl foot pain Objective Last 24 Hour Vital Signs Date Time Temp Pulse Resp B/P (MAP) Pulse Ox O2 Delivery O2 Flow Rate FiO2 08/15/18 12:53 98.1 08/15/18 11:50 98.1 65 20 129/85 (100) 95 98.1 08/15/18 09:00 Room Air 08/15/18 09:00 68 16 Room Air 21 08/15/18 08:46 98.1 08/15/18 08:16 98.1 08/15/18 08:00 98.1 83 20 111/71 (84) 100 98.1 08/15/18 04:00 97.2 57 18 127/74 (91) 98 97.2 08/15/18 00:00 97.1 58 18 132/74 (93) 96 97.1 08/14/18 21:00 Room Air 08/14/18 20:00 97.4 71 18 127/73 (91) 97 97.4 08/14/18 19:09 63 16 Room Air 21 08/14/18 16:00 97.8 68 18 120/85 (97) 95 97.8 Intake and Output 08/14/18 08/15/18 19:00 07:00 Intake Total 450 ml 800 ml Output Total 1200 ml 1500 ml Balance -750 ml -700 ml Intake Oral 450 ml 800 ml Output Urine Total 1200 ml 1500 ml # Voids 4 3 Laboratory Tests 08/15/18 06:45: White Blood Count 5.2, Red Blood Count 5.57, Hemoglobin 15.3, Hematocrit 46.1, Mean Corpuscular Volume 83, Mean Corpuscular Hemoglobin 27.5, Mean Corpuscular Hemoglobin Concent 33.2, Red Cell Distribution Width 12.4, Platelet Count 178, Mean Platelet Volume 8.2, Neutrophils (%) (Auto) 53.7, Lymphocytes (%) (Auto) 33.5, Monocytes (%) (Auto) 8.4, Eosinophils (%) (Auto) 2.9, Basophils (%) (Auto ) 1.5, Sodium Level 137, Potassium Level 4.3, Chloride Level 103, Carbon Dioxide Level 27, Anion Gap 7, Blood Urea Nitrogen 12, Creatinine 0.7, Estimat Glomerular Filtration Rate > 60, Glucose Level 138H, Calcium Level 9.6, Phosphorus Level 3.5, Magnesium Level 1.9, Total Bilirubin 0.5, Aspartate Amino Transf (AST/SGOT) 13L, Alanine Aminotransferase (ALT/SGPT) 23, Alkaline Phosphatase 99, Total Protein 7.6, Albumin 3.7, Globulin 3.9, Albumin/Globulin Ratio 0.9L Height (Feet): 6 Height (Inches): 4.50 Weight (Pounds): 210 General Appearance: lethargic EENT: normal ENT inspection Neck: normal alignment Cardiovascular: normal peripheral pulses, normal rate, regular rhythm Respiratory/Chest: chest wall non-tender, lungs clear, normal breath sounds Abdomen: normal bowel sounds, non tender, soft Extremities: normal inspection Edema: no edema noted Arm (L), no edema noted Arm (R), no edema noted Leg (L), no edema noted Leg (R), no edema noted Pedal (L), no edema noted Pedal (R), no edema noted Generalized Objective foot dressing c&d Adriano Lei DO Aug 15, 2018 13:30
[2018-08-15 15:42] VITALS: BP 118/71
--- NOTE | 2018-08-15 15:45 | Podiatric Progress Note ---
Assessment/Plan Patient Bernard AyalaJr is a 48 year old male who was admitted on Aug 12, 2018 at 17:34 with Assessment/Plan A/ 1) Hematoma/blister right hallux - s/p I&D 2) DM with neuropathy 3) h/o healed amputations right 2nd toe and left TMA P/ 1) Cont wound care as ordered. Cultures pending 2) Ok to d/c from my standpoint 3) Patient can ambulate with post op shoe without restrictions 4) Will follow Subjective Allergies: Coded Allergies: IBUPROFEN (Verified Allergy, Severe, Anaphylaxis, 08/12/18) PENICILLINS (Verified Allergy, Severe, Anaphylaxis, 08/12/18) Subjective Patient states that foot feels better Objective Exam Last 24 Hour Vital Signs Date Time Temp Pulse Resp B/P (MAP) Pulse Ox O2 Delivery O2 Flow Rate FiO2 08/15/18 13:23 98.1 08/15/18 12:53 98.1 08/15/18 11:50 98.1 65 20 129/85 (100) 95 98.1 08/15/18 09:00 Room Air 08/15/18 09:00 68 16 Room Air 21 08/15/18 08:16 98.1 08/15/18 08:00 98.1 83 20 111/71 (84) 100 98.1 08/15/18 04:00 97.2 57 18 127/74 (91) 98 97.2 08/15/18 00:00 97.1 58 18 132/74 (93) 96 97.1 08/14/18 21:00 Room Air 08/14/18 20:00 97.4 71 18 127/73 (91) 97 97.4 08/14/18 19:09 63 16 Room Air 21 08/14/18 16:00 97.8 68 18 120/85 (97) 95 97.8 Laboratory Tests Test 08/15/18 06:45 White Blood Count 5.2 K/UL (4.8-10.8) Red Blood Count 5.57 M/UL (4.70-6.10) Hemoglobin 15.3 G/DL (14.2-18.0) Hematocrit 46.1 % (42.0-52.0) Mean Corpuscular Volume 83 FL (80-99) Mean Corpuscular Hemoglobin 27.5 PG (27.0-31.0) Mean Corpuscular Hemoglobin Concent 33.2 G/DL (32.0-36.0) Red Cell Distribution Width 12.4 % (11.6-14.8) Platelet Count 178 K/UL (150-450) Mean Platelet Volume 8.2 FL (6.5-10.1) Neutrophils (%) (Auto) 53.7 % (45.0-75.0) Lymphocytes (%) (Auto) 33.5 % (20.0-45.0) Monocytes (%) (Auto) 8.4 % (1.0-10.0) Eosinophils (%) (Auto) 2.9 % (0.0-3.0) Basophils (%) (Auto) 1.5 % (0.0-2.0) Sodium Level 137 MMOL/L (136-145) Potassium Level 4.3 MMOL/L (3.5-5.1) Chloride Level 103 MMOL/L (98-107) Carbon Dioxide Level 27 MMOL/L (21-32) Anion Gap 7 mmol/L (5-15) Blood Urea Nitrogen 12 mg/dL (7-18) Creatinine 0.7 MG/DL (0.55-1.30) Estimat Glomerular Filtration Rate > 60 mL/min (>60) Glucose Level 138 MG/DL (74-106) H Calcium Level 9.6 MG/DL (8.5-10.1) Phosphorus Level 3.5 MG/DL (2.5-4.9) Magnesium Level 1.9 MG/DL (1.8-2.4) Total Bilirubin 0.5 MG/DL (0.2-1.0) Aspartate Amino Transf (AST/SGOT) 13 U/L (15-37) L Alanine Aminotransferase (ALT/SGPT) 23 U/L (12-78) Alkaline Phosphatase 99 U/L (46-116) Total Protein 7.6 G/DL (6.4-8.2) Albumin 3.7 G/DL (3.4-5.0) Globulin 3.9 g/dL Albumin/Globulin Ratio 0.9 (1.0-2.7) L Microbiology Date/Time Source Procedure Growth Status 08/14/18 20:00 Foot Right Gram Stain - Final Resulted 08/14/18 20:00 Foot Right Wound Culture Pending Resulted Dermatological Dermatological Narrative left hallux improved in appearance. minimal sanguinous drainage noted. No signs of acute infection. Farhat Noel DPM Aug 15, 2018 15:45
[2018-08-15] MEDS: Levemir Flexpen SUBQ SCH (20:18)
[2018-08-15 20:35] VITALS: BP 136/93
[2018-08-16 00:33] VITALS: BP 129/85
[2018-08-16] MEDS: Morphine Sulfate 2mg/ml Inj IVP PRN ×2 (03:51→08:41)
[2018-08-16 04:00] VITALS: BP 99/57
[2018-08-16] MEDS: NovoLOG Insulin Flexpen SUBQ SCH ×7 (06:33→20:24)
[2018-08-16 08:00] VITALS: BP 119/79
[2018-08-16] MEDS: Heparin 5000 units/ml inj SUBQ SCH ×2 (08:42→20:25)
--- NOTE | 2018-08-16 08:52 | General Progress Note ---
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 D/w Dr. Moore and he concurred. Subjective Date patient seen: Aug 16, 2018 Time patient seen: 07:00 - am Allergies: Coded Allergies: IBUPROFEN (Verified Allergy, Severe, Anaphylaxis, 08/12/18) PENICILLINS (Verified Allergy, Severe, Anaphylaxis, 08/12/18) Subjective Constitutional: Reports: no symptoms HEENT: Reports: no symptoms Cardiovascular: Reports: no symptoms Respiratory: Reports: no symptoms Gastrointestinal/Abdominal: Reports: no symptoms Genitourinary: Reports: no symptoms Neurologic/Psychiatric: Reports: numbness, weakness Endocrine: Reports: no symptoms Hematologic/Lymphatic: Reports: no symptoms Subjective Patient is in reporting pain at a mild level. D/w patient about switching the Morphine to [place]. He understands Objective Last 24 Hour Vital Signs Date Time Temp Pulse Resp B/P (MAP) Pulse Ox O2 Delivery O2 Flow Rate FiO2 08/16/18 08:00 97.6 83 20 119/79 (92) 94 97.6 08/16/18 07:49 84 18 Room Air 21 08/16/18 04:00 98.5 64 18 99/57 (71) 94 98.5 08/16/18 00:33 98.5 75 16 129/85 (100) 94 98.5 08/15/18 21:00 Room Air 08/15/18 20:35 98.4 72 18 136/93 (107) 94 98.4 08/15/18 19:30 70 16 Room Air 21 08/15/18 17:23 98.6 08/15/18 16:53 98.6 08/15/18 15:42 98.6 84 19 118/71 (87) 99 98.6 08/15/18 12:53 98.1 08/15/18 11:50 98.1 65 20 129/85 (100) 95 98.1 08/15/18 09:00 Room Air 08/15/18 09:00 68 16 Room Air 21 Intake and Output 08/15/18 08/16/18 19:00 07:00 Intake Total 980 ml 720 ml Output Total 1310 ml Balance -330 ml 720 ml Intake Oral 980 ml 720 ml Output Urine Total 1310 ml # Voids 2 6 # Bowel Movements 1 1 Height (Feet): 6 Height (Inches): 4.50 Weight (Pounds): 211 Objective General Appearance: no apparent distress, alert EENT: PERRL/EOMI, normal ENT inspection Neck: non-tender, normal alignment Cardiovascular: normal rate, regular rhythm Respiratory/Chest: lungs clear, normal breath sounds Abdomen: non tender, soft Extremities: bandages applied to right foot Edema: trace edema Neurologic: alert, oriented x 3 Tiago Mary Aug 16, 2018 08:52
[2018-08-16 12:00] VITALS: BP 137/89
[2018-08-16] MEDS ORDERED: LEVEMIR FL100 UNIT/1 SUBQ (12:12)
[2018-08-16] MEDS ORDERED: NOVOLOG100 UNITS1 SUBQ (12:12)
[2018-08-16] MEDS ORDERED: RISPERDAL1 MG ORAL (12:12)
[2018-08-16] MEDS ORDERED: HYDROcodone/Acetamin 10/325 ORAL (12:12)
[2018-08-16] MEDS ORDERED: LIPITOR10 MG ORAL (12:12)
--- NOTE | 2018-08-16 12:13 | Pulmonology Progress Note ---
Assessment/Plan Problems: (1) Uncontrolled diabetes mellitus (2) HTN (hypertension) (3) Hyperglycemia (4) Psychiatric disorder Assessment/Plan on levemir adn novlog BS better off offluids monitor BP on clonidine prn Subjective Interval Events: late note for 08/15 HEENT: Repors: no symptoms Respiratory: Reports: no symptoms Allergies: Coded Allergies: IBUPROFEN (Verified Allergy, Severe, Anaphylaxis, 08/12/18) PENICILLINS (Verified Allergy, Severe, Anaphylaxis, 08/12/18) Objective Last 24 Hour Vital Signs Date Time Temp Pulse Resp B/P (MAP) Pulse Ox O2 Delivery O2 Flow Rate FiO2 08/16/18 08:00 97.6 83 20 119/79 (92) 94 97.6 08/16/18 07:49 84 18 Room Air 21 08/16/18 04:00 98.5 64 18 99/57 (71) 94 98.5 08/16/18 00:33 98.5 75 16 129/85 (100) 94 98.5 08/15/18 21:00 Room Air 08/15/18 20:35 98.4 72 18 136/93 (107) 94 98.4 08/15/18 19:30 70 16 Room Air 21 08/15/18 17:23 98.6 08/15/18 16:53 98.6 08/15/18 15:42 98.6 84 19 118/71 (87) 99 98.6 08/15/18 12:53 98.1 Intake and Output 08/15/18 08/16/18 19:00 07:00 Intake Total 980 ml 720 ml Output Total 1310 ml Balance -330 ml 720 ml Intake Oral 980 ml 720 ml Output Urine Total 1310 ml # Voids 2 6 # Bowel Movements 1 1 General Appearance: WD/WN, no acute distress HEENT: normocephalic Respiratory/Chest: chest wall non-tender, lungs clear Cardiovascular: normal peripheral pulses, normal rate Abdomen: soft, non tender Genitourinary: normal external genitalia Extremities: no clubbing Skin: no rash Microbiology Date/Time Source Procedure Growth Status 08/14/18 20:00 Foot Right Gram Stain - Final Resulted 08/14/18 20:00 Foot Right Wound Culture - Preliminary NO GROWTH AFTER 24 HOURS Resulted Current Medications Medications (Trade) Dose Ordered Sig/Alex Route PRN Reason Start Time Stop Time Status Last Admin Dose Admin Acetaminophen (Tylenol) 650 mg Q4H PRN ORAL fever 08/12/18 16:15 09/11/18 16:14 08/12/18 19:41 Acetaminophen/ Hydrocodone Bitart ([place] ) 1 tab Q4H PRN ORAL Severe Pain (Pain Scale 7-10) 08/16/18 12:41 08/23/18 12:40 Al Hydroxide/Mg Hydroxide (Mylanta II) 30 ml Q6H PRN ORAL dyspepsia 08/12/18 16:15 09/11/18 16:14 Albuterol/ Ipratropium (Albuterol/ Ipratropium) 3 ml Q4H PRN HHN Shortness of Breath 08/12/18 16:15 08/17/18 16:14 Atorvastatin Calcium (Lipitor) 10 mg BEDTIME ORAL 08/13/18 21:00 09/12/18 20:59 08/15/18 20:13 Clonidine HCl (Catapres Tab) 0.1 mg Q4H PRN ORAL sbp more than 160 08/12/18 16:15 09/11/18 16:14 08/14/18 12:06 Dextrose (Dextrose 50%) 25 ml Q30M PRN IV Hypoglycemia 08/12/18 19:00 09/11/18 18:59 Dextrose (Dextrose 50%) 50 ml Q30M PRN IV Hypoglycemia 08/12/18 19:00 09/11/18 18:59 Heparin Sodium (Porcine) (Heparin 5000 units/ml) 5,000 units EVERY 12 HOURS SUBQ 08/12/18 21:00 09/11/18 20:59 08/16/18 08:42 Insulin Aspart (NovoLOG) BEFORE MEALS AND HS SUBQ 08/12/18 18:22 09/11/18 18:21 08/16/18 06:33 Insulin Aspart (NovoLOG) 6 units NOVOTIAC SUBQ 08/13/18 06:30 09/12/18 06:29 08/16/18 06:34 Insulin Detemir (Levemir) 18 units BEDTIME SUBQ 08/12/18 21:00 09/11/18 20:59 08/15/18 20:18 Lorazepam (Ativan) 1 mg Q6H PRN ORAL For Anxiety 08/14/18 05:30 08/21/18 05:29 08/15/18 20:15 Nitroglycerin (Ntg) 0.4 mg Q5M X 3 DOSES PRN SL Prn Chest Pain 08/12/18 16:15 09/11/18 16:14 Ondansetron HCl (Zofran) 4 mg Q6H PRN IVP Nausea & Vomiting 08/12/18 16:15 09/11/18 16:14 Polyethylene Glycol (Miralax) 17 gm HSPRN PRN ORAL Constipation 08/12/18 16:15 09/11/18 16:14 Risperidone (RisperDAL) 1 mg QHS ORAL 08/14/18 21:00 09/13/18 20:59 08/15/18 20:13 Temazepam (Restoril) 15 mg HSPRN PRN ORAL Insomnia 08/12/18 16:15 08/19/18 16:14 Jami Willett MD Aug 16, 2018 12:13
--- NOTE | 2018-08-16 12:14 | Pulmonology Progress Note ---
Assessment/Plan Problems: (1) Uncontrolled diabetes mellitus (2) HTN (hypertension) (3) Hyperglycemia (4) Psychiatric disorder Assessment/Plan on levemir adn novlog BS better off offluids monitor BP on clonidine prn dc planning back to ARF, prescriptions written Subjective ROS Limited/Unobtainable: No Constitutional: Reports: no symptoms HEENT: Repors: no symptoms Respiratory: Reports: no symptoms Allergies: Coded Allergies: IBUPROFEN (Verified Allergy, Severe, Anaphylaxis, 08/12/18) PENICILLINS (Verified Allergy, Severe, Anaphylaxis, 08/12/18) Objective Last 24 Hour Vital Signs Date Time Temp Pulse Resp B/P (MAP) Pulse Ox O2 Delivery O2 Flow Rate FiO2 08/16/18 08:00 97.6 83 20 119/79 (92) 94 97.6 08/16/18 07:49 84 18 Room Air 21 08/16/18 04:00 98.5 64 18 99/57 (71) 94 98.5 08/16/18 00:33 98.5 75 16 129/85 (100) 94 98.5 08/15/18 21:00 Room Air 08/15/18 20:35 98.4 72 18 136/93 (107) 94 98.4 08/15/18 19:30 70 16 Room Air 21 08/15/18 17:23 98.6 08/15/18 16:53 98.6 08/15/18 15:42 98.6 84 19 118/71 (87) 99 98.6 08/15/18 12:53 98.1 Intake and Output 08/15/18 08/16/18 19:00 07:00 Intake Total 980 ml 720 ml Output Total 1310 ml Balance -330 ml 720 ml Intake Oral 980 ml 720 ml Output Urine Total 1310 ml # Voids 2 6 # Bowel Movements 1 1 General Appearance: WD/WN, no acute distress HEENT: normocephalic, anicteric Respiratory/Chest: chest wall non-tender, lungs clear Cardiovascular: normal peripheral pulses, normal rate Abdomen: normal bowel sounds, no organomegaly Extremities: no cyanosis Skin: no rash 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 Lymphatic: no neck adenopathy Microbiology Date/Time Source Procedure Growth Status 08/14/18 20:00 Foot Right Gram Stain - Final Resulted 08/14/18 20:00 Foot Right Wound Culture - Preliminary NO GROWTH AFTER 24 HOURS Resulted Current Medications Medications (Trade) Dose Ordered Sig/Alex Route PRN Reason Start Time Stop Time Status Last Admin Dose Admin Acetaminophen (Tylenol) 650 mg Q4H PRN ORAL fever 08/12/18 16:15 09/11/18 16:14 08/12/18 19:41 Acetaminophen/ Hydrocodone Bitart ([place] 10) 1 tab Q4H PRN ORAL Severe Pain (Pain Scale 7-10) 08/16/18 12:41 08/23/18 12:40 Al Hydroxide/Mg Hydroxide (Mylanta II) 30 ml Q6H PRN ORAL dyspepsia 08/12/18 16:15 09/11/18 16:14 Albuterol/ Ipratropium (Albuterol/ Ipratropium) 3 ml Q4H PRN HHN Shortness of Breath 08/12/18 16:15 08/17/18 16:14 Atorvastatin Calcium (Lipitor) 10 mg BEDTIME ORAL 08/13/18 21:00 09/12/18 20:59 08/15/18 20:13 Clonidine HCl (Catapres Tab) 0.1 mg Q4H PRN ORAL sbp more than 160 08/12/18 16:15 09/11/18 16:14 08/14/18 12:06 Dextrose (Dextrose 50%) 25 ml Q30M PRN IV Hypoglycemia 08/12/18 19:00 09/11/18 18:59 Dextrose (Dextrose 50%) 50 ml Q30M PRN IV Hypoglycemia 08/12/18 19:00 09/11/18 18:59 Heparin Sodium (Porcine) (Heparin 5000 units/ml) 5,000 units EVERY 12 HOURS SUBQ 08/12/18 21:00 09/11/18 20:59 08/16/18 08:42 Insulin Aspart (NovoLOG) BEFORE MEALS AND HS SUBQ 08/12/18 18:22 09/11/18 18:21 08/16/18 06:33 Insulin Aspart (NovoLOG) 6 units NOVOTIAC SUBQ 08/13/18 06:30 09/12/18 06:29 08/16/18 06:34 Insulin Detemir (Levemir) 18 units BEDTIME SUBQ 08/12/18 21:00 09/11/18 20:59 08/15/18 20:18 Lorazepam (Ativan) 1 mg Q6H PRN ORAL For Anxiety 08/14/18 05:30 08/21/18 05:29 08/15/18 20:15 Nitroglycerin (Ntg) 0.4 mg Q5M X 3 DOSES PRN SL Prn Chest Pain 08/12/18 16:15 09/11/18 16:14 Ondansetron HCl (Zofran) 4 mg Q6H PRN IVP Nausea & Vomiting 08/12/18 16:15 09/11/18 16:14 Polyethylene Glycol (Miralax) 17 gm HSPRN PRN ORAL Constipation 08/12/18 16:15 09/11/18 16:14 Risperidone (RisperDAL) 1 mg QHS ORAL 08/14/18 21:00 09/13/18 20:59 08/15/18 20:13 Temazepam (Restoril) 15 mg HSPRN PRN ORAL Insomnia 08/12/18 16:15 08/19/18 16:14 Jami Willett MD Aug 16, 2018 12:14
--- NOTE | 2018-08-16 13:37 | General Progress Note ---
Assessment/Plan Problem List: (1) Wound of foot ICD Codes: S91.309A - Unspecified open wound, unspecified foot, initial encounter SNOMED: 129637470, 397108314 (2) Behavioral disorder SNOMED: 064795783 (3) Hyperglycemia ICD Codes: R73.9 - Hyperglycemia, unspecified SNOMED: 76084632 (4) HTN (hypertension) ICD Codes: I10 - Essential (primary) hypertension SNOMED: 46143327 (5) Uncontrolled diabetes mellitus ICD Codes: E11.65 - Type 2 diabetes mellitus with hyperglycemia SNOMED: 71976950, 757788396 (6) Psychiatric disorder ICD Codes: F99 - Mental disorder, not otherwise specified SNOMED: 10680756, 482494660 Status: progressing Assessment/Plan wound care pain control ot pt diet abx dc if clear Subjective Constitutional: Reports: weakness Allergies: Coded Allergies: IBUPROFEN (Verified Allergy, Severe, Anaphylaxis, 08/12/18) PENICILLINS (Verified Allergy, Severe, Anaphylaxis, 08/12/18) All Systems: reviewed and negative except above Subjective calm in bed sl foot pain Objective Last 24 Hour Vital Signs Date Time Temp Pulse Resp B/P (MAP) Pulse Ox O2 Delivery O2 Flow Rate FiO2 08/16/18 08:00 97.6 83 20 119/79 (92) 94 97.6 08/16/18 07:49 84 18 Room Air 21 08/16/18 04:00 98.5 64 18 99/57 (71) 94 98.5 08/16/18 00:33 98.5 75 16 129/85 (100) 94 98.5 08/15/18 21:00 Room Air 08/15/18 20:35 98.4 72 18 136/93 (107) 94 98.4 08/15/18 19:30 70 16 Room Air 21 08/15/18 17:23 98.6 08/15/18 16:53 98.6 08/15/18 15:42 98.6 84 19 118/71 (87) 99 98.6 Intake and Output 08/15/18 08/16/18 19:00 07:00 Intake Total 980 ml 720 ml Output Total 1310 ml Balance -330 ml 720 ml Intake Oral 980 ml 720 ml Output Urine Total 1310 ml # Voids 2 6 # Bowel Movements 1 1 Height (Feet): 6 Height (Inches): 4.50 Weight (Pounds): 211 General Appearance: lethargic EENT: normal ENT inspection Neck: normal alignment Cardiovascular: normal peripheral pulses, normal rate, regular rhythm Respiratory/Chest: chest wall non-tender, lungs clear, normal breath sounds Abdomen: normal bowel sounds, non tender, soft Extremities: normal inspection Edema: no edema noted Arm (L), no edema noted Arm (R), no edema noted Leg (L), no edema noted Leg (R), no edema noted Pedal (L), no edema noted Pedal (R), no edema noted Generalized Neurologic: responsive, motor weakness Skin: normal pigmentation, warm/dry Objective foot dressing c&d Adriano Lei DO Aug 16, 2018 13:37
[2018-08-16] MEDS: HYDROcodone/Acetamin 10/325 tab ORAL PRN ×3 (14:13→23:14)
[2018-08-16 16:00] VITALS: BP 167/103
[2018-08-16] MEDS: LORazepam 1mg tab ORAL PRN (16:15)
[2018-08-16 19:06] VITALS: BP 131/84
[2018-08-16] MEDS: Levemir Flexpen SUBQ SCH (20:25)
[2018-08-17 00:44] VITALS: BP 128/69
[2018-08-17] MEDS: HYDROcodone/Acetamin 10/325 tab ORAL PRN ×2 (04:16→10:22)
[2018-08-17 04:27] VITALS: BP 132/79
[2018-08-17] MEDS: NovoLOG Insulin Flexpen SUBQ SCH ×3 (05:58→12:34)
--- NOTE | 2018-08-17 06:25 | General Progress Note ---
Assessment/Plan Problem List: (1) Behavioral disorder SNOMED: 199000053 (2) Hyperglycemia ICD Codes: R73.9 - Hyperglycemia, unspecified SNOMED: 78558987 (3) HTN (hypertension) ICD Codes: I10 - Essential (primary) hypertension SNOMED: 12857440 (4) Uncontrolled diabetes mellitus ICD Codes: E11.65 - Type 2 diabetes mellitus with hyperglycemia SNOMED: 09047032, 603961361 (5) Psychiatric disorder ICD Codes: F99 - Mental disorder, not otherwise specified SNOMED: 75891743, 180183590 (6) Wound of foot ICD Codes: S91.309A - Unspecified open wound, unspecified foot, initial encounter SNOMED: 757068824, 410639668 Assessment/Plan increase Novolog to 8 units ac tid continue Levemir 18 units qhs continue NISS Subjective Allergies: Coded Allergies: IBUPROFEN (Verified Allergy, Severe, Anaphylaxis, 08/12/18) PENICILLINS (Verified Allergy, Severe, Anaphylaxis, 08/12/18) All Systems: reviewed and negative except above Subjective events noted Objective Last 24 Hour Vital Signs Date Time Temp Pulse Resp B/P (MAP) Pulse Ox O2 Delivery O2 Flow Rate FiO2 08/17/18 04:27 98.2 72 20 132/79 (96) 96 08/17/18 00:44 97.8 67 20 128/69 (88) 95 08/16/18 21:00 Room Air 08/16/18 19:35 98.1 08/16/18 19:08 76 18 Room Air 21 08/16/18 19:06 75 131/84 (100) 08/16/18 16:00 98.1 67 16 167/103 (124) 96 08/16/18 12:00 98.1 74 16 137/89 (105) 96 08/16/18 09:00 Room Air 08/16/18 08:00 97.6 83 20 119/79 (92) 94 97.6 08/16/18 07:49 84 18 Room Air 21 Intake and Output 08/16/18 08/17/18 18:59 06:59 Intake Total 696 ml 780 ml Output Total 300 ml 1900 ml Balance 396 ml -1120 ml Intake Oral 696 ml 780 ml Output Urine Total 300 ml 1900 ml # Voids 2 6 Height (Feet): 6 Height (Inches): 4.50 Weight (Pounds): 211 General Appearance: no apparent distress Neck: normal alignment Cardiovascular: normal rate Respiratory/Chest: lungs clear Abdomen: normal bowel sounds Pelvis: normal external exam Edema: no edema noted Arm (L), no edema noted Arm (R), no edema noted Leg (L), no edema noted Leg (R), no edema noted Pedal (L), no edema noted Pedal (R), no edema noted Generalized Objective Current Medications Medications (Trade) Dose Ordered Sig/Alex Route PRN Reason Start Time Stop Time Status Last Admin Dose Admin Acetaminophen (Tylenol) 650 mg Q4H PRN ORAL fever 08/12/18 16:15 09/11/18 16:14 08/12/18 19:41 Acetaminophen/ Hydrocodone Bitart ([place] 10) 1 tab Q4H PRN ORAL Severe Pain (Pain Scale 7-10) 08/16/18 12:41 08/23/18 12:40 08/17/18 04:16 Al Hydroxide/Mg Hydroxide (Mylanta II) 30 ml Q6H PRN ORAL dyspepsia 08/12/18 16:15 09/11/18 16:14 Albuterol/ Ipratropium (Albuterol/ Ipratropium) 3 ml Q4H PRN HHN Shortness of Breath 08/12/18 16:15 08/17/18 16:14 Atorvastatin Calcium (Lipitor) 10 mg BEDTIME ORAL 08/13/18 21:00 09/12/18 20:59 08/16/18 20:22 Clonidine HCl (Catapres Tab) 0.1 mg Q4H PRN ORAL sbp more than 160 08/12/18 16:15 09/11/18 16:14 08/14/18 12:06 Dextrose (Dextrose 50%) 25 ml Q30M PRN IV Hypoglycemia 08/12/18 19:00 09/11/18 18:59 Dextrose (Dextrose 50%) 50 ml Q30M PRN IV Hypoglycemia 08/12/18 19:00 09/11/18 18:59 Heparin Sodium (Porcine) (Heparin 5000 units/ml) 5,000 units EVERY 12 HOURS SUBQ 08/12/18 21:00 09/11/18 20:59 08/16/18 20:25 Insulin Aspart (NovoLOG) BEFORE MEALS AND HS SUBQ 08/12/18 18:22 09/11/18 18:21 08/17/18 05:58 Insulin Aspart (NovoLOG) 6 units NOVOTIAC SUBQ 08/13/18 06:30 09/12/18 06:29 08/17/18 06:01 Insulin Detemir (Levemir) 18 units BEDTIME SUBQ 08/12/18 21:00 09/11/18 20:59 08/16/18 20:25 Lorazepam (Ativan) 1 mg Q6H PRN ORAL For Anxiety 08/14/18 05:30 08/21/18 05:29 08/16/18 16:15 Nitroglycerin (Ntg) 0.4 mg Q5M X 3 DOSES PRN SL Prn Chest Pain 08/12/18 16:15 09/11/18 16:14 Ondansetron HCl (Zofran) 4 mg Q6H PRN IVP Nausea & Vomiting 08/12/18 16:15 09/11/18 16:14 Polyethylene Glycol (Miralax) 17 gm HSPRN PRN ORAL Constipation 08/12/18 16:15 09/11/18 16:14 Risperidone (RisperDAL) 1 mg QHS ORAL 08/14/18 21:00 09/13/18 20:59 08/16/18 20:22 Temazepam (Restoril) 15 mg HSPRN PRN ORAL Insomnia 08/12/18 16:15 08/19/18 16:14 Item Value Date Time Bedside Blood Glucose 172 mg/dl H 08/17/18 0601 Bedside Blood Glucose 220 mg/dl H 08/16/18 2052 Bedside Blood Glucose 214 mg/dl H 08/16/18 1725 Bedside Blood Glucose 226 mg/dl H 08/16/18 1234 Ramez Crawford MD Aug 17, 2018 06:24
[2018-08-17 08:00] VITALS: BP 130/74
--- NOTE | 2018-08-17 08:56 | General Progress Note ---
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 D/w Dr. Moore and he concurred. Subjective Date patient seen: Aug 17, 2018 Time patient seen: 07:00 - am Allergies: Coded Allergies: IBUPROFEN (Verified Allergy, Severe, Anaphylaxis, 08/12/18) PENICILLINS (Verified Allergy, Severe, Anaphylaxis, 08/12/18) Subjective Constitutional: Reports: no symptoms HEENT: Reports: no symptoms Cardiovascular: Reports: no symptoms Respiratory: Reports: no symptoms Gastrointestinal/Abdominal: Reports: no symptoms Genitourinary: Reports: no symptoms Neurologic/Psychiatric: Reports: numbness, weakness Endocrine: Reports: no symptoms Hematologic/Lymphatic: Reports: no symptoms Subjective Patient in bed showing no signs of pain. Pain has been tolerated on the norco. Objective Last 24 Hour Vital Signs Date Time Temp Pulse Resp B/P (MAP) Pulse Ox O2 Delivery O2 Flow Rate FiO2 08/17/18 08:00 98.1 69 18 130/74 (92) 95 08/17/18 04:27 98.2 72 20 132/79 (96) 96 08/17/18 00:44 97.8 67 20 128/69 (88) 95 08/16/18 21:00 Room Air 08/16/18 19:35 98.1 08/16/18 19:08 76 18 Room Air 21 08/16/18 19:06 75 131/84 (100) 08/16/18 16:00 98.1 67 16 167/103 (124) 96 08/16/18 12:00 98.1 74 16 137/89 (105) 96 08/16/18 09:00 Room Air Intake and Output 08/16/18 08/17/18 18:59 06:59 Intake Total 696 ml 780 ml Output Total 300 ml 1900 ml Balance 396 ml -1120 ml Intake Oral 696 ml 780 ml Output Urine Total 300 ml 1900 ml # Voids 2 6 Height (Feet): 6 Height (Inches): 4.50 Weight (Pounds): 211 Objective General Appearance: no apparent distress, alert EENT: PERRL/EOMI, normal ENT inspection Neck: non-tender, normal alignment Cardiovascular: normal rate, regular rhythm Respiratory/Chest: lungs clear, normal breath sounds Abdomen: non tender, soft Extremities: bandages applied to right foot Edema: trace edema Neurologic: alert, oriented x 3 Tiago Mary Aug 17, 2018 08:56
[2018-08-17] MEDS: Heparin 5000 units/ml inj SUBQ SCH (10:22)
[2018-08-17] MEDS ORDERED: NovoLOG Insulin Flexpen SUBQ SCH (11:50)
[2018-08-17 12:00] VITALS: BP 137/96
--- NOTE | 2018-08-17 12:18 | Pulmonology Progress Note ---
Assessment/Plan Problems: (1) Uncontrolled diabetes mellitus (2) HTN (hypertension) (3) Hyperglycemia (4) Psychiatric disorder Assessment/Plan on levemir adn novlog BS better off offluids monitor BP on clonidine prn difficult placement prescriptions written Subjective ROS Limited/Unobtainable: No Constitutional: Reports: no symptoms HEENT: Repors: no symptoms Allergies: Coded Allergies: IBUPROFEN (Verified Allergy, Severe, Anaphylaxis, 08/12/18) PENICILLINS (Verified Allergy, Severe, Anaphylaxis, 08/12/18) Objective Last 24 Hour Vital Signs Date Time Temp Pulse Resp B/P (MAP) Pulse Ox O2 Delivery O2 Flow Rate FiO2 08/17/18 08:00 98.1 69 18 130/74 (92) 95 08/17/18 04:27 98.2 72 20 132/79 (96) 96 08/17/18 00:44 97.8 67 20 128/69 (88) 95 08/16/18 21:00 Room Air 08/16/18 19:35 98.1 08/16/18 19:08 76 18 Room Air 21 08/16/18 19:06 75 131/84 (100) 08/16/18 16:00 98.1 67 16 167/103 (124) 96 Intake and Output 08/16/18 08/17/18 19:00 07:00 Intake Total 696 ml 780 ml Output Total 300 ml 1900 ml Balance 396 ml -1120 ml Intake Oral 696 ml 780 ml Output Urine Total 300 ml 1900 ml # Voids 2 6 General Appearance: WD/WN HEENT: normocephalic, anicteric Respiratory/Chest: chest wall non-tender, lungs clear, no respiratory distress Cardiovascular: normal peripheral pulses, regular rhythm, regularly irregular Abdomen: normal bowel sounds, no organomegaly Extremities: no cyanosis Skin: no rash, no lesions Microbiology Date/Time Source Procedure Growth Status 08/14/18 20:00 Foot Right Gram Stain - Final Resulted 08/14/18 20:00 Foot Right Wound Culture - Preliminary NO GROWTH AFTER 48 HOURS Resulted Current Medications Medications (Trade) Dose Ordered Sig/Alex Route PRN Reason Start Time Stop Time Status Last Admin Dose Admin Acetaminophen (Tylenol) 650 mg Q4H PRN ORAL fever 08/12/18 16:15 09/11/18 16:14 08/12/18 19:41 Acetaminophen/ Hydrocodone Bitart ([place] ) 1 tab Q4H PRN ORAL Severe Pain (Pain Scale 7-10) 08/16/18 12:41 08/23/18 12:40 08/17/18 10:22 Al Hydroxide/Mg Hydroxide (Mylanta II) 30 ml Q6H PRN ORAL dyspepsia 08/12/18 16:15 09/11/18 16:14 Albuterol/ Ipratropium (Albuterol/ Ipratropium) 3 ml Q4H PRN HHN Shortness of Breath 08/12/18 16:15 08/17/18 16:14 Atorvastatin Calcium (Lipitor) 10 mg BEDTIME ORAL 08/13/18 21:00 09/12/18 20:59 08/16/18 20:22 Clonidine HCl (Catapres Tab) 0.1 mg Q4H PRN ORAL sbp more than 160 08/12/18 16:15 09/11/18 16:14 08/14/18 12:06 Dextrose (Dextrose 50%) 25 ml Q30M PRN IV Hypoglycemia 08/12/18 19:00 09/11/18 18:59 Dextrose (Dextrose 50%) 50 ml Q30M PRN IV Hypoglycemia 08/12/18 19:00 09/11/18 18:59 Heparin Sodium (Porcine) (Heparin 5000 units/ml) 5,000 units EVERY 12 HOURS SUBQ 08/12/18 21:00 09/11/18 20:59 08/17/18 10:22 Insulin Aspart (NovoLOG) BEFORE MEALS AND HS SUBQ 08/12/18 18:22 09/11/18 18:21 08/17/18 05:58 Insulin Aspart (NovoLOG) 8 units NOVOTIAC SUBQ 08/17/18 11:50 09/12/18 11:49 Insulin Detemir (Levemir) 18 units BEDTIME SUBQ 08/12/18 21:00 09/11/18 20:59 08/16/18 20:25 Lorazepam (Ativan) 1 mg Q6H PRN ORAL For Anxiety 08/14/18 05:30 08/21/18 05:29 08/16/18 16:15 Nitroglycerin (Ntg) 0.4 mg Q5M X 3 DOSES PRN SL Prn Chest Pain 08/12/18 16:15 09/11/18 16:14 Ondansetron HCl (Zofran) 4 mg Q6H PRN IVP Nausea & Vomiting 08/12/18 16:15 09/11/18 16:14 Polyethylene Glycol (Miralax) 17 gm HSPRN PRN ORAL Constipation 08/12/18 16:15 09/11/18 16:14 Risperidone (RisperDAL) 1 mg QHS ORAL 08/14/18 21:00 09/13/18 20:59 08/16/18 20:22 Temazepam (Restoril) 15 mg HSPRN PRN ORAL Insomnia 08/12/18 16:15 08/19/18 16:14 Jami Willett MD Aug 17, 2018 12:18
--- NOTE | 2018-08-17 13:03 | General Progress Note ---
Assessment/Plan Problem List: (1) Wound of foot ICD Codes: S91.309A - Unspecified open wound, unspecified foot, initial encounter SNOMED: 902390464, 999561829 (2) Behavioral disorder SNOMED: 515911795 (3) Hyperglycemia ICD Codes: R73.9 - Hyperglycemia, unspecified SNOMED: 98526468 (4) HTN (hypertension) ICD Codes: I10 - Essential (primary) hypertension SNOMED: 80223388 (5) Uncontrolled diabetes mellitus ICD Codes: E11.65 - Type 2 diabetes mellitus with hyperglycemia SNOMED: 95280167, 074222152 (6) Psychiatric disorder ICD Codes: F99 - Mental disorder, not otherwise specified SNOMED: 10347824, 686991664 Status: stable, progressing Assessment/Plan wound care pain control ot pt diet abx dc if clear Subjective Constitutional: Reports: weakness Allergies: Coded Allergies: IBUPROFEN (Verified Allergy, Severe, Anaphylaxis, 08/12/18) PENICILLINS (Verified Allergy, Severe, Anaphylaxis, 08/12/18) All Systems: reviewed and negative except above Subjective calm in bed sl foot pain Objective Last 24 Hour Vital Signs Date Time Temp Pulse Resp B/P (MAP) Pulse Ox O2 Delivery O2 Flow Rate FiO2 08/17/18 10:52 98.1 08/17/18 08:00 98.1 69 18 130/74 (92) 95 08/17/18 04:27 98.2 72 20 132/79 (96) 96 08/17/18 00:44 97.8 67 20 128/69 (88) 95 08/16/18 21:00 Room Air 08/16/18 19:08 76 18 Room Air 21 08/16/18 19:06 75 131/84 (100) 08/16/18 16:00 98.1 67 16 167/103 (124) 96 Intake and Output 08/16/18 08/17/18 19:00 07:00 Intake Total 696 ml 780 ml Output Total 300 ml 1900 ml Balance 396 ml -1120 ml Intake Oral 696 ml 780 ml Output Urine Total 300 ml 1900 ml # Voids 2 6 Height (Feet): 6 Height (Inches): 4.50 Weight (Pounds): 211 General Appearance: lethargic EENT: normal ENT inspection Neck: non-tender Cardiovascular: normal peripheral pulses, normal rate, regular rhythm Respiratory/Chest: chest wall non-tender, lungs clear, normal breath sounds Abdomen: normal bowel sounds, non tender, soft Extremities: normal inspection Edema: no edema noted Arm (L), no edema noted Arm (R), no edema noted Leg (L), no edema noted Leg (R), no edema noted Pedal (L), no edema noted Pedal (R), no edema noted Generalized Neurologic: responsive, motor weakness Skin: normal pigmentation, warm/dry Objective foot dressing c&d Adriano Lei DO Aug 17, 2018 13:03
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
== END 2018-08-17 13:40 | disposition home or self-care (01) | DRG 638 ==
LOC: EDBD 15:05 → EMR 16:10 → EDBEDREQ 17:18 → 3E 17:34
PROC: 0H9MXZZ Drainage of Right Foot Skin, External Approach (ICD-10-PCS; principal; 2018-08-14)
DX: E11.65 Type 2 diabetes mellitus with hyperglycemia (principal); G93.40 Encephalopathy, unspecified; F31.81 Bipolar II disorder; E11.40 Type 2 diabetes mellitus with diabetic neuropathy, unspecified; I10 Essential (primary) hypertension; J44.9 Chronic obstructive pulmonary disease, unspecified; F17.200 Nicotine dependence, unspecified, uncomplicated; E78.00 Pure hypercholesterolemia, unspecified; F91.9 Conduct disorder, unspecified; E11.51 Type 2 diabetes mellitus with diabetic peripheral angiopathy without gangrene; S90.422A Blister (nonthermal), left great toe, initial encounter; Z89.432 Acquired absence of left foot; Z89.421 Acquired absence of other right toe(s); Z88.0 Allergy status to penicillin; Z23 Encounter for immunization
CPT/HCPCS: 36415; 80048; 80053; 80061; 81003; 82009; 82962; 83036; 83735; 84100; 84443; 85025; 87070; 87205; 90471; 90715; 94664; 96361; 96365; 96366; 96367; 97803; 99285; J1815; S5561